=== PATIENT | female | born 1965 | race African-American/Black ===

== ENCOUNTER 2017-12-01 14:24 | Emergency (ER) | payer BC ==
[~2017-12-01] VITALS: Ht 162.6 cm; Wt 100.7 kg
[~2017-12-01 14:24] MED LIST: ADVIL,NUPRIN,M200 MG PO; FIORICET 50-301 EACH PO; IMITREX50 MG PO; MELOXICAM15 MG PO; OMEPRAZOLE20 M2 PO; REGLAN10 MG PO
[2017-12-01 16:24] LABS: HEMOGLOBIN 12.5 G/DL (11.9-15.5); MCH 30.7 PG (29.0-34.0); MCHC 34.7 G/DL (30.0-36.0); MCV 88.5 FL (83-99); PLATELET COUNT 295 K/uL (156-360); RBC DIS.WIDTH-CV 12.1 % (11.8-14.6); RBC DIS.WIDTH-SD 39.3 % (39-53); RED BLOOD COUNT 4.07 M/uL (3.80-5.20); WHITE BLOOD COUNT 4.6 K/uL (4.1-10.2)
[2017-12-01 16:41] LABS: CHLORIDE 101 mEq/L (99-109); POTASSIUM 3.1 mEq/L (3.7-5.4); SODIUM 141 mEq/L (136-147)
[2017-12-01 16:43] LABS: GLUCOSE 160 mg/dL (70-99)
[2017-12-01 16:46] LABS: CREATININE 0.8 mg/dL (0.6-1.3); GFR ESTIMATE (CALCULATED) > 59 mL/min/
[2017-12-01 16:47] LABS: UREA NITROGEN (BUN) 13 mg/dL (9-23)
[2017-12-01 16:53] LABS: TROP-I INTERPRETATION NEGATIVE; TROPONIN-I < 0.01 ng/mL (0.0-0.30)
[2017-12-01 20:09] LABS: TROP-I INTERPRETATION NEGATIVE; TROPONIN-I < 0.01 ng/mL (0.0-0.30)
[2017-12-01] MEDS ORDERED: ZITHROMAX Z-PA250 MG PO (20:47)
[2017-12-01 20:51] VITALS: BP 127/75
== END 2017-12-01 20:52 | disposition home or self-care (01) ==
LOC: RME 14:24 → EME 14:24 → RME 20:52
PROVIDERS: Physician Assistant Medical
DX: R51 Headache (principal); R07.9 Chest pain, unspecified; R91.8 Other nonspecific abnormal finding of lung field; R11.0 Nausea; I10 Essential (primary) hypertension; K21.9 Gastro-esophageal reflux disease without esophagitis; I49.8 Other specified cardiac arrhythmias; F17.210 Nicotine dependence, cigarettes, uncomplicated; Z88.0 Allergy status to penicillin; Z88.5 Allergy status to narcotic agent
CPT/HCPCS: 71046; 80048; 84484; 85027; 85379; 93005; 99281; 99284; J0780; J1200; J7030